=== PATIENT | female | born 1985 | race Caucasian/White ===

== ENCOUNTER 2018-08-30 08:19 | Day surgery (SDC) | payer BC ==
[2018-08-28 11:44] LABS: BASOPHILS # (AUTO) 0.1 X10'3 (0-0.2); EOSINOPHILS # (AUTO) 0.1 X10'3 (0-0.9); EOSINOPHILS % (AUTO) 1.1 % (0-6); LYMPHOCYTES # (AUTO) 2.5 X10'3 (1.1-4.8); LYMPHOCYTES % (AUTO) 37.6 % (21-51); MEAN CORPUSCULAR HEMOGLOBIN 30.1 PG (27.0-31.0); MEAN CORPUSCULAR HGB CONC 32.9 g/dL (33.0-36.5); MEAN CORPUSCULAR VOLUME 91.6 FL (78-98); MEAN PLATELET VOLUME 11.5 FL (7.4-10.4); MONOCYTES # (AUTO) 0.4 X10'3 (0-0.9); MONOCYTES % (AUTO) 5.7 % (2-12); NEUTROPHILS # (AUTO) 3.4 X10'3 (1.8-7.7); NEUTROPHILS % (AUTO) 54.6 % (42-75); PRE OP HEMATOCRIT 43.8 % (35.0-45.0); PRE OP HEMOGLOBIN 14.4 g/dL (12.0-16.0); PRE OP PLATELET COUNT 206 X10'3 (140-440); RED BLOOD COUNT 4.78 X10'6 (4.20-5.60); RED CELL DISTRIBUTION WIDTH 12.1 % (11.5-14.5)
[2018-08-28 11:46] LABS: HCG SERUM QL NEGATIVE
[2018-08-28 11:48] LABS: ALBUMIN 4.2 G/DL (3.4-5.0); ALBUMIN/GLOBULIN RATIO 1.3 (1.1-1.5); ALKALINE PHOSPHATASE 65 IU/L (46-116); BLOOD UREA NITROGEN 17 MG/DL (7-18); BUN/CREATININE RATIO 27.4 (6.6-38.0); CALCIUM 9.2 MG/DL (8.5-10.1); CHLORIDE 103 MMOL/L (99-107); CREATININE 0.62 MG/DL (0.40-0.90); PRE OP ALT 31 U/L (30-65); PRE OP ANION GAP 9 (8-16); PRE OP AST 18 U/L (10-37); PRE OP BILIRUB, TOTAL 0.9 MG/DL (0.0-1.0); PRE OP GLUCOSE 82 MG/DL (70-104); PRE OP POTASSIUM 3.7 MMOL/L (3.4-5.1); PRE OP SODIUM 141 MMOL/L (135-145); TOTAL CARBON DIOXIDE 28.8 MMOL/L (24-32); TOTAL PROTEIN 7.5 G/DL (6.4-8.2); eGFR > 90 ML/MIN
[~2018-08-30] VITALS: Ht 160 cm; Wt 77.1 kg
[2018-08-30] VITALS (9 sets, daily range): BP systolic 113–124; BP diastolic 44–81
[~2018-08-30 08:19] MED LIST: ACET-812 PO; ASPI-778 PO; cefotetan 2gm/isosm dext IVPB 50 ML IV ONE; famotidine 20mg tablet PO ONE; ringers solution, lacted 1,000 ML IV SCH
[2018-08-30] MEDS ORDERED: ceFAZolin 1000mg inj ONE (10:54)
[2018-08-30] MEDS ORDERED: BUPIVAcaine/PF 2.5mg/ml (0.25%) 10ml vial ONE (10:55)
[2018-08-30] MEDS ORDERED: propofol inj 20 ML IV ONE (11:09)
[2018-08-30] MEDS ORDERED: midazolam 2 mg/2 ml injection ONE (11:09)
[2018-08-30] MEDS ORDERED: fentaNYL/PF 50MCG/1 ML 2ML syringe ONE (11:09)
[2018-08-30] MEDS ORDERED: sevoflurane 250ml liquid IH ONE (11:12)
[2018-08-30] MEDS ORDERED: rocuronium 10mg/ml inj IV ONE (11:14)
[2018-08-30] MEDS ORDERED: meperidine/PF 25mg/ml syringe IV PRN ×3 (11:30)
[2018-08-30] MEDS ORDERED: morphine 4 MG/ML inj SYRINge IV PRN ×2 (11:30)
[2018-08-30] MEDS ORDERED: ringers solution, lacted 1,000 ML IV SCH (11:30)
[2018-08-30] MEDS ORDERED: ketorolac trometh. 30mg/ml inj. IV ONE (11:30)
[2018-08-30] MEDS ORDERED: proCHLORperazine 10 MG/2 ml inj IV PRN (11:30)
[2018-08-30] MEDS ORDERED: ondansetron/PF 4mg/2ml inj IV PRN (11:30)
[2018-08-30] MEDS ORDERED: glycopyrrolate 0.2mg/ml inj ONE (11:54)
[2018-08-30] MEDS ORDERED: ondansetron/PF 4mg/2ml inj ONE (11:54)
[2018-08-30] MEDS ORDERED: neostigmine methylsulfate 1 MG/ML 10ml vial ONE (11:54)
[2018-08-30] MEDS ORDERED: dexamethasone sod phosphate 4mg/ml inj. ONE (11:54)
--- NOTE | 2018-08-30 12:12 | NUR ---
ARRIVED IN PACU VIA GURNEY FROM OR WITH O2 ON. DR Silva IN ATTENDANCE. REPORT RECEIVED. VS STABLE. RESTLESS, C/O SM-MOD PAIN, MEDICATED BY DR Silva ON ARRIVAL
--- NOTE | 2018-08-30 12:42 | NUR ---
SLEEPING COMFORTABLY. WHEN AWAKE LALIT A FEW ICE CHIPS
--- NOTE | 2018-08-30 13:00 | NUR ---
AT BEDSIDE. PT TEARFUL. SHE TOOK A 1/2 OF A NORCO THAT VILMA DELIVERED TO BEDSIDE. ZOFRAN GIVEN FOR PAST HX OF POST OP N&V
--- NOTE | 2018-08-30 13:52 | NUR ---
PAIN IMPROVED. TOLERATING CRACKERS AND WATER. REVIEWED DISCHARGE WITH PT AND . UP. STEADY ON FEET. DRESSED WITH ASSISTANCE OF . TO CAR VIA W/C ACCOMPANIED BY NURSE WITHOUT INCIDENT
== END 2018-08-30 13:52 | disposition home or self-care (01) ==
LOC: PAS 08:19
PROVIDERS: ATTEND Surgery
DX: K80.10 Calculus of gallbladder with chronic cholecystitis without obstruction (principal); Z98.890 Other specified postprocedural states; Z79.899 Other long term (current) drug therapy
CPT/HCPCS: 36415; 47562; 80053; 84703; 85025; J0690; J1100; J1885; J2175; J2250; J2405; J2704; J2710; J3010; J3490; J7120; A7000